=== PATIENT | male | born 1945 | race Caucasian/White ===

== ENCOUNTER → 2017-11-17 02:38 | Outpatient (CLI) | payer MEDICARE, OTHER, SELFPAY ==
[2017-11-17 11:31] LABS: INR 2.7 (1.0-3.5); Prothrombin Time 25.2 sec (9.3-10.8)
== END ==
PROVIDERS: PCP Emergency Medicine; Visit Provider Emergency Medicine
DX: I48.91 Unspecified atrial fibrillation (principal); Z79.01 Long term (current) use of anticoagulants
CPT/HCPCS: 36415; 85610

== ENCOUNTER 2017-12-12 09:11 | Emergency (ER) | payer MEDICARE, OTHER, SELFPAY ==
[2017-12-12] VITALS (11 sets, daily range): BP systolic 135; BP diastolic 70; PULSE 52–63; RESP 11–26; TEMP 37.1; O2SAT 95–98
[2017-12-12] MEDS: Tranexamic Acid 650 MG TAB PO ×2 (09:45→11:52)
--- NOTE | 2017-12-12 09:50 | W.ED.GENAD ---
Discharge Plan Discharge Details Chief Complaint: DentalOral Reason For Visit: DENTAL Primary Care Provider: Dakota Obando ED Provider: Tung Coto Home Meds and New Rx's Prescriptions: No Action cyanocobalamin (vitamin B-12) [Vitamin B-12] 1,000 MCG tablet extended release 1,000 mcg PO DAILY RF: 0 cholecalciferol (vitamin D3) [Vitamin D3] 400 UNIT capsule 400 unit PO DAILY RF: 0 amlodipine 5 MG tablet 2.5 mg PO DAILY Qty: 45 RF: 6 sildenafil [Viagra] 100 MG tablet 100 mg PO PRN Qty: 5 RF: 6 warfarin [Coumadin] 2.5 MG tablet 2.5 mg PO QPM Qty: 90 RF: 12 atorvastatin [Lipitor] 40 MG tablet 80 mg PO QPM Qty: 180 RF: 3 metoprolol succinate 100 MG tablet extended release 24 hr 200 mg PO BID Qty: 180 RF: 3 Discharge Data Discharge Date/Time-TO BE ENTERED AT DEPARTURE: 12/12/17 12:57 Medical Decision Making [facility] Narrative Medical decision making narrative: 9:55 --72-year-old male on Coumadin presents with heavy bleeding from dental extraction site since yesterday. Hemodynamically stable. The bag and heavy clot removed from bleeding site and small slow bleeding persist. TXA slurry made and applied to the bleeding site with gauze. Consider supratherapeutic INR and anemia will check INR and cbc. 11:00 --patient continues to have slow oozing despite TXA. Will reapply dressing. Plan to treat with K Centra 50 U/kg as well as vitamin K 5 mg p.o. No ENT or OMFS available here. I called to transfer this patient to the most appropriate potential receiving facility and unfortunately [facility] [place] is not able to accept given lack of bed availability. I called [facility] to request emergent transfer. 11:25 --I spoke with Dr. King, oral surgeon at [facility], who recommended patient be transferred to the emergency department and assessed by dental resident. He did not recommend additional treatment at this time other than continued TXA with pressure. I spoke with Dr. Carvalho, emergency medicine physician [facility], who will accept the patient in transfer. Will send with immunohematologist. 12:00 -- Pt reassessed: clot removed and clean gauze reapplied. Remains hemodynamically stable. Awaiting ambulance availability. HPI - General Adult General Date/Time Provider Initiated Documentation: 12/12/17 09:26. Limitations to Documentation: no limitations. Information obtained by: patient. HPI Narrative: 72-year-old male with history of atrial fibrillation on Coumadin here with chief complaint of post dental extraction bleeding. Patient notes he had his tooth pulled 2 days ago. He started to have some bleeding yesterday. Bleeding is persisted. This morning he woke up with a pool of blood on his pillow. He applied a tea bag to the area and has been biting down on this which has improved the bleeding. Bleeding was severe. Now improved. No associated dizziness or weakness. Patient notes that his Coumadin level is typically within normal range. He last took Coumadin 2 days ago and did not take a dose last night. Related Data Home Medications Medication Instructions Recorded Confirmed cholecalciferol (vitamin D3) 400 unit PO DAILY 06/23/12 12/12/17 [Vitamin D] cyanocobalamin (vitamin B-12) 1,000 mcg PO DAILY 06/23/12 12/12/17 [Vitamin B-12] Previous Rx's Medication Instructions Recorded amlodipine 2.5 mg PO DAILY #45 tab-cap 03/18/17 sildenafil [Viagra] 100 mg PO PRN #5 tab 03/18/17 warfarin [Coumadin] 2.5 mg PO QPM #90 tab 04/17/17 atorvastatin [Lipitor] 80 mg PO QPM #180 tab 09/23/17 metoprolol succinate 200 mg PO BID #180 tabcr 10/02/17 Allergies Allergy/AdvReac Type Severity Reaction Status Date / Time No Known Drug Allergies Allergy Unverified 12/12/17 09:20 General Stated Complaint: DentalOral GREG: 4 Review of Systems Review of Systems All systems reviewed & are unremarkable except as noted in HPI and below ENT Reports as per HPI Cardiovascular Denies lightheadedness PFSH Family History Mother Heart disease Father Personal history of malignant neoplasm Sister No problems noted. Brother Personal history of malignant neoplasm Medical History A-fib Central sleep apnea associated with atrial fibrillation HTN (hypertension) History of CVA (cerebrovascular accident) Social History Smoking/Tobacco Use Status: Former Tobacco Use Surgical History Repair of inguinal hernia Tonsillectomy and adenoidectomy Exam Const General: healthy appearing and no acute distress Limitations: mental status not altered HENMT Teeth image: 1. Post extraction site with significant post cauterization changes of mucosa with small area of oozing bleeding Throat: posterior oropharynx normal Eyes Conjunctivae: conjunctivae normal and conjunctival abnormality EOM: EOM intact bilaterally Neck Neck: no lymphadenopathy Resp Effort & Inspection: normal respiratory effort and no respiratory distress Auscultation: clear to auscultation bilaterally Cardio Rate: regular rate Rhythm: regular rhythm Skin General skin exam: dry skin and no pallor Neuro General: alert and awake Course Vital Signs Temperature 37.1 C 12/12/17 09:16 Pulse 52 L 12/12/17 09:16 Respiratory Rate 12 12/12/17 09:16 Blood Pressure 135/70 12/12/17 09:16 Pulse Oximetry 98 12/12/17 09:16 Temperature 37.1 C 12/12/17 09:16 Pulse 52 L 12/12/17 09:16 Respiratory Rate 12 12/12/17 09:16 Blood Pressure 135/70 12/12/17 09:16 Pulse Oximetry 98 12/12/17 09:16 Critical Care Time Total Critical Care Time: 40 Attestation: I spent >40 min addressing this patients immediate life threats
--- NOTE | 2017-12-12 09:57 | ED.GENADUL_ITS ---
Discharge Plan Discharge Details Chief Complaint: DentalOral Reason For Visit: DENTAL Primary Care Provider: Dakota Obando ED Provider: Tung Coto Home Meds and New Rx's Prescriptions: No Action cyanocobalamin (vitamin B-12) [Vitamin B-12] 1,000 MCG tablet extended release 1,000 mcg PO DAILY RF: 0 cholecalciferol (vitamin D3) [Vitamin D3] 400 UNIT capsule 400 unit PO DAILY RF: 0 amlodipine 5 MG tablet 2.5 mg PO DAILY Qty: 45 RF: 6 sildenafil [Viagra] 100 MG tablet 100 mg PO PRN Qty: 5 RF: 6 warfarin [Coumadin] 2.5 MG tablet 2.5 mg PO QPM Qty: 90 RF: 12 atorvastatin [Lipitor] 40 MG tablet 80 mg PO QPM Qty: 180 RF: 3 metoprolol succinate 100 MG tablet extended release 24 hr 200 mg PO BID Qty: 180 RF: 3 Discharge Data Discharge Date/Time-TO BE ENTERED AT DEPARTURE: 12/12/17 12:57 Medical Decision Making [facility] Narrative Medical decision making narrative: 9:55 --72-year-old male on Coumadin presents with heavy bleeding from dental extraction site since yesterday. Hemodynamically stable. The bag and heavy clot removed from bleeding site and small slow bleeding persist. TXA slurry made and applied to the bleeding site with gauze. Consider supratherapeutic INR and anemia will check INR and cbc. 11:00 --patient continues to have slow oozing despite TXA. Will reapply dressing. Plan to treat with K Centra 50 U/kg as well as vitamin K 5 mg p.o. No ENT or OMFS available here. I called to transfer this patient to the most appropriate potential receiving facility and unfortunately [facility] is not able to accept given lack of bed availability. I called [facility] to request emergent transfer. 11:25 --I spoke with Dr. King, oral surgeon at [facility], who recommended patient be transferred to the emergency department and assessed by dental resident. He did not recommend additional treatment at this time other than continued TXA with pressure. I spoke with Dr. Carvalho, emergency medicine physician [facility], who will accept the patient in transfer. Will send with safety and health manager. 12:00 -- Pt reassessed: clot removed and clean gauze reapplied. Remains hemodynamically stable. Awaiting ambulance availability. HPI - General Adult General Date/Time Provider Initiated Documentation: 12/12/17 09:26 . Limitations to Documentation: no limitations . Information obtained by: patient . HPI Narrative: 72-year-old male with history of atrial fibrillation on Coumadin here with chief complaint of post dental extraction bleeding. Patient notes he had his tooth pulled 2 days ago. He started to have some bleeding yesterday. Bleeding is persisted. This morning he woke up with a pool of blood on his pillow. He applied a tea bag to the area and has been biting down on this which has improved the bleeding. Bleeding was severe. Now improved. No associated dizziness or weakness. Patient notes that his Coumadin level is typically within normal range. He last took Coumadin 2 days ago and did not take a dose last night. Related Data Home Medications Medication Instructions Recorded Confirmed cholecalciferol (vitamin D3) 400 unit PO DAILY 06/23/12 12/12/17 [Vitamin D] cyanocobalamin (vitamin B-12) 1,000 mcg PO DAILY 06/23/12 12/12/17 [Vitamin B-12] Previous Rx's Medication Instructions Recorded amlodipine 2.5 mg PO DAILY #45 tab-cap 03/18/17 sildenafil [Viagra] 100 mg PO PRN #5 tab 03/18/17 warfarin [Coumadin] 2.5 mg PO QPM #90 tab 04/17/17 atorvastatin [Lipitor] 80 mg PO QPM #180 tab 09/23/17 metoprolol succinate 200 mg PO BID #180 tabcr 10/02/17 Allergies Allergy/AdvReac Type Severity Reaction Status Date / Time No Known Drug Allergies Allergy Unverified 12/12/17 09:20 General Stated Complaint: DentalOral GREG: 4 Review of Systems Review of Systems All systems reviewed & are unremarkable except as noted in HPI and below ENT Reports as per HPI Cardiovascular Denies lightheadedness PFSH Family History Mother Heart disease Father Personal history of malignant neoplasm Sister No problems noted. Brother Personal history of malignant neoplasm Medical History A-fib Central sleep apnea associated with atrial fibrillation HTN (hypertension) History of CVA (cerebrovascular accident) Social History Smoking/Tobacco Use Status: Former Tobacco Use Surgical History Repair of inguinal hernia Tonsillectomy and adenoidectomy Exam Const General: healthy appearing and no acute distress Limitations: mental status not altered [facility] Teeth image: 2 1. Post extraction site with significant post cauterization changes of mucosa with small area of oozing bleeding Throat: posterior oropharynx normal Eyes Conjunctivae: conjunctivae normal and conjunctival abnormality EOM: EOM intact bilaterally Neck Neck: no lymphadenopathy Resp Effort & Inspection: normal respiratory effort and no respiratory distress Auscultation: clear to auscultation bilaterally Cardio Rate: regular rate Rhythm: regular rhythm Skin General skin exam: dry skin and no pallor Neuro General: alert and awake Course Vital Signs Temperature 37.1 C 12/12/17 09:16 Pulse 52 L 12/12/17 09:16 Respiratory Rate 12 12/12/17 09:16 Blood Pressure 135/70 12/12/17 09:16 Pulse Oximetry 98 12/12/17 09:16 Temperature 37.1 C 12/12/17 09:16 Pulse 52 L 12/12/17 09:16 Respiratory Rate 12 12/12/17 09:16 Blood Pressure 135/70 12/12/17 09:16 Pulse Oximetry 98 12/12/17 09:16 Critical Care Time Total Critical Care Time: 40 Attestation: I spent >40 min addressing this patients immediate life threats
[2017-12-12 10:36] LABS: HGB 14.9 g/dL (13.5-17.5); Mean Corp. HGB Concentration 33.9 g/dL (32.0-36.0); Mean Corpuscular Hemoglobin 31.2 pg (27.0-33.0); Mean Corpuscular Volume 92.2 fL (80-95); Mean Platelet Volume 9.6 fL (8.0-11.0); Platelet Count 224 x1000/uL (130-400); RBC 4.77 m/cumm (4.50-6.00); White Blood Cell Count 10.87 k/cumm (4.4-10.8)
[2017-12-12 10:45] LABS: Prothrombin Time 56.3 sec (9.3-10.8)
[2017-12-12 10:49] LABS: INR 6.2 (1.0-3.5)
[2017-12-12] MEDS: Phytonadione 5 MG TABLET PO (11:55)
== END 2017-12-12 12:57 ==
LOC: ER 13:37
PROVIDERS: Emergency Provider Student in an Organized Health Care Education/Training Program; PCP Emergency Medicine
DX: K91.840 Postprocedural hemorrhage of a digestive system organ or structure following a digestive system procedure (principal); Y84.8 Other medical procedures as the cause of abnormal reaction of the patient, or of later complication, without mention of misadventure at the time of the procedure; R79.1 Abnormal coagulation profile; T45.515A Adverse effect of anticoagulants, initial encounter; Z79.01 Long term (current) use of anticoagulants; I48.91 Unspecified atrial fibrillation; I10 Essential (primary) hypertension
CPT/HCPCS: 36415; 85027; 96365; 99285; 85610; 99284

== ENCOUNTER 2017-12-14 12:00 | Outpatient (CLI) | payer MEDICARE, OTHER, SELFPAY ==
[2017-12-14 13:36] LABS: INR 1.4 (1.0-3.5); Prothrombin Time 13.1 sec (9.3-10.8)
== END 2017-12-14 12:20 ==
PROVIDERS: PCP Emergency Medicine; Visit Provider Emergency Medicine
DX: I48.91 Unspecified atrial fibrillation (principal); Z79.01 Long term (current) use of anticoagulants
CPT/HCPCS: 36415; 85610

== ENCOUNTER 2017-12-18 01:09 | Outpatient (CLI) | payer MEDICARE, OTHER, SELFPAY ==
[2017-12-18 11:55] LABS: INR 1.9 (1.0-3.5)
== END 2017-12-18 01:29 ==
LOC: LOS 01:10 → LBO 11:01
PROVIDERS: PCP Emergency Medicine; Visit Provider Emergency Medicine
DX: I48.91 Unspecified atrial fibrillation (principal); Z79.01 Long term (current) use of anticoagulants
CPT/HCPCS: 36415; 85610

== ENCOUNTER 2018-01-14 02:18 | Outpatient (CLI) | payer MEDICARE, OTHER, SELFPAY ==
[2018-01-14 13:23] LABS: INR 2.5 (1.0-3.5); Prothrombin Time 23.3 sec (9.3-10.8)
== END 2018-01-14 02:38 ==
PROVIDERS: PCP Emergency Medicine; Visit Provider Emergency Medicine
DX: I48.91 Unspecified atrial fibrillation (principal); Z79.01 Long term (current) use of anticoagulants
CPT/HCPCS: 36415; 85610

== ENCOUNTER 2018-07-27 01:44 | Outpatient (CLI) | payer MEDICARE, OTHER, SELFPAY ==
[2018-07-27 13:06] LABS: INR 1.9 (0.9-1.1); Prothrombin Time 18.8 sec (9.3-11.0)
== END 2018-07-27 02:04 ==
PROVIDERS: PCP Emergency Medicine; Visit Provider Emergency Medicine
DX: I48.91 Unspecified atrial fibrillation (principal); Z79.01 Long term (current) use of anticoagulants
CPT/HCPCS: 36415; 85610

== ENCOUNTER 2018-08-04 08:30 | Outpatient (CLI) | payer MEDICARE, OTHER, SELFPAY ==
[2018-08-04 11:03] LABS: INR 1.6 (0.9-1.1); Prothrombin Time 15.9 sec (9.3-11.0)
[2018-08-04 11:35] LABS: ALT 22 U/L (12-78); AST 21 U/L (15-37); Albumin 3.7 g/dL (3.4-5.0); Alkaline Phosphatase 70 U/L (46-116); Anion Gap 7.3 mmol/L (3-11); BUN 14 mg/dL (7-18); Bilirubin, Total 0.8 mg/dL (0.2-1.0); CO2 29.7 mmol/L (21.0-32.0); CREATININE 1.13 mg/dL (0.70-1.30); Calcium 9.6 mg/dL (8.5-10.1); Chloride 104 mmol/L (98-107); Cholesterol 131 mg/dL (50-200); Glucose 107 mg/dL (70-100); HDL Cholesterol 50 mg/dL (40-60); LDL CHOLESTEROL 67 mg/dL (<100); Potassium 4.6 mmol/L (3.5-5.1); Sodium 141 mmol/L (136-145); TSH 1.11 uIU/mL (0.358-3.74); Total Protein 7.1 g/dL (6.4-8.2); Triglyceride 60 mg/dL (30-150)
[2018-08-04 11:41] LABS: ESR 8 MM/HR (1-20)
== END 2018-08-04 08:50 ==
PROVIDERS: PCP Emergency Medicine; Visit Provider Emergency Medicine
DX: I63.9 Cerebral infarction, unspecified; R63.4 Abnormal weight loss; E03.9 Hypothyroidism, unspecified; I48.91 Unspecified atrial fibrillation; Z79.01 Long term (current) use of anticoagulants
CPT/HCPCS: 36415; 80053; 80061; 83721; 85652; 84443; 85610

== ENCOUNTER 2018-08-16 09:36 | Outpatient (CLI) | payer MEDICARE, OTHER, SELFPAY ==
[2018-08-16 11:21] LABS: Prothrombin Time 20.6 sec (9.3-11.0)
== END 2018-08-16 09:56 ==
PROVIDERS: PCP Emergency Medicine; Visit Provider Emergency Medicine
DX: I48.91 Unspecified atrial fibrillation (principal); Z79.01 Long term (current) use of anticoagulants
CPT/HCPCS: 36415; 85610

== ENCOUNTER 2018-09-02 12:34 | Outpatient (CLI) | payer MEDICARE, OTHER, SELFPAY ==
[2018-09-02 14:16] LABS: INR 2.5 (0.9-1.1); Prothrombin Time 25.4 sec (9.3-11.0)
== END 2018-09-02 12:54 ==
PROVIDERS: PCP Emergency Medicine; Visit Provider Emergency Medicine
DX: I48.91 Unspecified atrial fibrillation (principal); Z79.01 Long term (current) use of anticoagulants
CPT/HCPCS: 36415; 85610

== ENCOUNTER 2018-09-08 01:52 | Outpatient (CLI) | payer MEDICARE, OTHER, SELFPAY ==
[2018-09-08 11:03] LABS: INR 2.2 (0.9-1.1); Prothrombin Time 21.8 sec (9.3-11.0)
== END 2018-09-08 02:12 ==
PROVIDERS: PCP Emergency Medicine; Visit Provider Emergency Medicine
DX: I48.91 Unspecified atrial fibrillation (principal); Z79.01 Long term (current) use of anticoagulants
CPT/HCPCS: 36415; 85610

== ENCOUNTER 2018-10-12 02:40 | Outpatient (CLI) | payer MEDICARE, OTHER, SELFPAY ==
[2018-10-12 10:55] LABS: INR 3.5 (0.9-1.1); Prothrombin Time 35.3 sec (9.3-11.0)
== END 2018-10-12 03:00 ==
PROVIDERS: PCP Emergency Medicine; Visit Provider Emergency Medicine
DX: I48.91 Unspecified atrial fibrillation (principal); Z79.01 Long term (current) use of anticoagulants
CPT/HCPCS: 36415; 85610

== ENCOUNTER 2018-10-27 09:40 | Outpatient (CLI) | payer MEDICARE, OTHER, SELFPAY ==
[2018-10-27 10:48] LABS: HCT 43.6 % (40.0-50.0); HGB 14.4 g/dL (13.5-17.5); Mean Corpuscular Hemoglobin 30.6 pg (27.0-33.0); Mean Corpuscular Volume 92.8 fL (80-95); Platelet Count 229 x1000/uL (130-400); RBC Distribution Width 12.8 % (11.8-14.1); White Blood Cell Count 6.99 k/cumm (4.4-10.8)
[2018-10-27 10:56] LABS: INR 1.6 (0.9-1.1); Prothrombin Time 16.4 sec (9.3-11.0)
[2018-10-27 11:41] LABS: ALT 27 U/L (12-78); AST 19 U/L (15-37); Albumin 3.5 g/dL (3.4-5.0); Alkaline Phosphatase 69 U/L (46-116); Anion Gap 8.4 mmol/L (3-11); BUN 21 mg/dL (7-18); Bilirubin, Total 0.7 mg/dL (0.2-1.0); CO2 28.6 mmol/L (21.0-32.0); CREATININE 1.03 mg/dL (0.70-1.30); Calcium 8.7 mg/dL (8.5-10.1); Chloride 104 mmol/L (98-107); Glucose 96 mg/dL (70-100); Potassium 4.6 mmol/L (3.5-5.1); Sodium 141 mmol/L (136-145); Total Protein 6.7 g/dL (6.4-8.2)
== END 2018-10-27 10:00 ==
PROVIDERS: PCP Emergency Medicine; Visit Provider Emergency Medicine
DX: R63.4 Abnormal weight loss (principal); I48.91 Unspecified atrial fibrillation; Z79.01 Long term (current) use of anticoagulants
CPT/HCPCS: 36415; 80053; 85027; 85610

== ENCOUNTER 2018-11-24 02:39 | Outpatient (CLI) | payer MEDICARE, OTHER, SELFPAY ==
[2018-11-24 13:06] LABS: INR 2.8 (0.9-1.1); Prothrombin Time 28.6 sec (9.3-11.0)
== END 2018-11-24 02:59 ==
PROVIDERS: PCP Emergency Medicine; Visit Provider Emergency Medicine
DX: I48.91 Unspecified atrial fibrillation (principal); Z79.01 Long term (current) use of anticoagulants
CPT/HCPCS: 36415; 85610

== ENCOUNTER 2018-12-08 01:18 | Outpatient (CLI) | payer MEDICARE, OTHER, SELFPAY ==
[2018-12-08 13:00] LABS: Prothrombin Time 20.5 sec (9.3-11.0)
== END 2018-12-08 01:38 ==
PROVIDERS: PCP Emergency Medicine; Visit Provider Emergency Medicine
DX: I48.91 Unspecified atrial fibrillation (principal); Z79.01 Long term (current) use of anticoagulants
CPT/HCPCS: 36415; 85610

== ENCOUNTER 2018-12-14 07:00 | Outpatient (CLI) | payer MEDICARE, OTHER, SELFPAY ==
[2018-12-14 13:05] LABS: Abs Immature Grans 0.01 k/cumm (0.0-0.09); Absolute Basophil Count 0.02 k/cumm (0.0-0.2); Absolute Eosinophil Count 0.12 k/cumm (0.0-0.7); Absolute Lymphocyte Count 1.62 k/cumm (1.2-3.4); Absolute Neutrophil Count 5.41 k/cumm (1.2-6.7); Basophils % 0.3; Eosinophils % 1.5; HCT 44.2 % (40.0-50.0); HGB 14.6 g/dL (13.5-17.5); Immature Grans % 0.1; Lymphocytes % 20.3; Mean Corpuscular Hemoglobin 30.7 pg (27.0-33.0); Mean Corpuscular Volume 92.9 fL (80-95); Mean Platelet Volume 10.2 fL (8.0-11.0); Neutrophils % 67.8; Platelet Count 285 x1000/uL (130-400); RBC 4.76 m/cumm (4.50-6.00); RBC Distribution Width 13.3 % (11.8-14.1); White Blood Cell Count 7.98 k/cumm (4.4-10.8)
[2018-12-14 13:20] LABS: ALT 27 U/L (16-63); AST 23 U/L (15-37); Albumin 3.6 g/dL (3.4-5.0); Alkaline Phosphatase 69 U/L (46-116); Anion Gap 6.6 mmol/L (3-11); BUN 12 mg/dL (7-18); Bilirubin, Total 0.8 mg/dL (0.2-1.0); CO2 30.4 mmol/L (21.0-32.0); CREATININE 1.16 mg/dL (0.70-1.30); Calcium 8.7 mg/dL (8.5-10.1); Chloride 105 mmol/L (98-107); Glucose 115 mg/dL (70-100); Potassium 4.3 mmol/L (3.5-5.1); Sodium 142 mmol/L (136-145); Total Protein 6.9 g/dL (6.4-8.2)
[2018-12-14 13:25] LABS: C-Reactive Protein < 0.05 mg/dL (0.0-0.3)
[2018-12-14 14:58] LABS: ESR 10 mm/hr (1-20)
== END 2018-12-14 07:20 ==
PROVIDERS: PCP Emergency Medicine; Visit Provider Emergency Medicine
DX: R63.4 Abnormal weight loss (principal)
CPT/HCPCS: 36415; 80053; 85652; 81003; 85025; 86140

== ENCOUNTER 2018-12-20 00:36 | Outpatient (CLI) | payer MEDICARE, OTHER, SELFPAY ==
--- NOTE | 2018-12-20 09:49 | DI.RAD_ITS ---
EXAM: XR CHEST 2V PA LATERAL INDICATION: unexplained weight loss R63.4. COMPARISON: PORTABLE AP CHEST from 05/23/2011 TECHNIQUE: 2D digital imaging was performed. FINDINGS: The lungs are well expanded and free of infiltrate. There is no pleural effusion. The cardiovascular structures are intact. IMPRESSION: Normal chest.
== END 2018-12-20 00:56 ==
PROVIDERS: PCP Emergency Medicine; Visit Provider Emergency Medicine
DX: R63.4 Abnormal weight loss (principal)
CPT/HCPCS: 71046

== ENCOUNTER 2019-01-03 02:44 | Outpatient (CLI) | payer MEDICARE, OTHER, SELFPAY ==
[2019-01-03 11:52] LABS: INR 2.5 (0.9-1.1); Prothrombin Time 24.6 sec (9.3-11.0)
== END 2019-01-03 03:04 ==
PROVIDERS: PCP Emergency Medicine; Visit Provider Emergency Medicine
DX: I48.91 Unspecified atrial fibrillation (principal); Z79.01 Long term (current) use of anticoagulants
CPT/HCPCS: 36415; 85610

== ENCOUNTER 2019-01-14 11:10 | Outpatient (REF) | payer MEDICARE, OTHER, SELFPAY ==
--- NOTE | 2019-01-14 10:00 | SKI_PTH ---
PATIENT: JERRICA MUELLER LOC: [facility] U#:[id number] AGE/SX: 73/M ROOM: RE01/14/[address]: Dakota Obando DO : 1945 BED: DIS: 01/14/2019 SPEC #: [id number] RECD: 01/14/19 12:57 STATUS: INES REQ #: [id number] ALBA: 01/14/19 10:[address]: Dakota Obando DEPT: Surgical Specimen RECD BY: Sally River Tissues: 1 - SKIN BIOPSY(SHAVE/PUNCH) Procedures: SKIN LEVEL 4 Comments: [id number]
== END 2019-01-14 11:30 ==
LOC: LBN 11:10
PROVIDERS: PCP Emergency Medicine; Visit Provider Emergency Medicine
DX: L57.0 Actinic keratosis (principal)
CPT/HCPCS: 88305

== ENCOUNTER 2019-01-20 09:19 | Outpatient (CLI) | payer MEDICARE, OTHER, SELFPAY ==
--- NOTE | 2019-01-20 09:22 | DI.CT_ITS ---
EXAM: CT ABDOMEN PELVIS W CLINICAL HISTORY: 15 lb weight loss, abnl wt loss TECHNIQUE: CT examination of the abdomen and pelvis was performed with bolus infusion of 100 cc of O mnipaque 350 and ingestion of dilute barium. COMPARISON: No exams were available for comparison FINDINGS: Images obtained through the lung bases show nonspecific predominantly linear radiodensities in right lung base which may represent areas of scarring. Small areas of atelectasis or consolidation not ent irely excluded. No pleural effusion seen. Liver is unremarkable in appearance except for the presence of a couple of tiny low-attenuation lesio ns too small to characterize but presumably representing cysts. Gallbladder contains at least 1 gall stone. No gallbladder wall thickening by CT criteria. No biliary dilatation. Pancreas appears norm al. Spleen is normal in appearance. Abdominal aorta is of normal diameter and no major vascular abnormality is seen. Adrenals and kidneys are unremarkable in appearance except for a presumed small left renal cyst. Sma ll fat containing left inguinal hernia. Old right inguinal hernia plug noted. No urinary tract calcification. No hydronephrosis. Note is made of dilated urinary bladder and ther e is a left bladder diverticulum consistent with chronic bladder outlet obstruction. There is a very large lobulated mass most likely originating from the prostate, possibility of a bladder wall mass i s not excluded or could coexist with prostatic mass. Correlation with cystoscopy recommended. No focal bowel pathology identified. No evidence of diverticulitis or bowel obstruction. No gross a bdominal or pelvic adenopathy. IMPRESSION: 1. Cholelithiasis. 2. Question minimal right lower lobe atelectasis versus scarring, consolidation not entirely excluded . 3. Bladder diverticulum suggesting chronic bladder outlet obstruction. 4. Large prostatic or bladder mass, cystoscopy recommended for further evaluation.
[2019-01-20] MEDS: Omnipaque 350 MG/ML 100 ML BTL IJ (11:05)
== END 2019-01-20 09:39 ==
PROVIDERS: PCP Emergency Medicine; Visit Provider Emergency Medicine
DX: R63.4 Abnormal weight loss (principal); K80.20 Calculus of gallbladder without cholecystitis without obstruction; J98.4 Other disorders of lung; N32.0 Bladder-neck obstruction; N32.89 Other specified disorders of bladder; N42.89 Other specified disorders of prostate
CPT/HCPCS: 74177; J3490

== ENCOUNTER 2019-01-21 14:45 | Outpatient (CLI) | payer MEDICARE, OTHER, SELFPAY ==
[2019-01-21 15:05] LABS: Bilirubin Negative (Negative); Blood Negative (Negative); Clarity Clear (Clear); Glucose Negative (Negative); Ketones Negative (Negative); Leukocyte Esterase Negative (Negative); Nitrite Negative (Negative); Specific Gravity 1.015 (1.005-1.025); pH 6.5 (5-8)
[2019-01-21 15:27] LABS: Bacteria Moderate HPF (Negative); C & S Indicated? No; Casts 5-10 Hyaline LPF (Negative); Crystals Negative HPF (Negative); Epithelial Cells Negative HPF (Negative); Mucus Heavy (Negative); Other Cells Rare Renal (Negative); RBC 0-2 (0-2); WBC 0-2 HPF (0-5)
[2019-01-21 15:59] LABS: INR 2.5 (0.9-1.1); Prothrombin Time 24.5 sec (9.3-11.0)
[2019-01-24 10:31] LABS: PSA, Diagnostic 1.8 ng/ml (0-6.5)
== END 2019-01-21 15:05 ==
PROVIDERS: PCP Emergency Medicine; Visit Provider Emergency Medicine
DX: R30.0 Dysuria (principal); C61 Malignant neoplasm of prostate; I48.91 Unspecified atrial fibrillation; Z79.01 Long term (current) use of anticoagulants
CPT/HCPCS: 36415; 81003; 81015; 84153; 85610

== ENCOUNTER → 2019-01-27 14:40 | Outpatient (BNVA) | payer MEDICARE, OTHER, SELFPAY | PROVIDERS: PCP Emergency Medicine; Referring Provider Emergency Medicine; Visit Provider Urology | DX: N40.0 Benign prostatic hyperplasia without lower urinary tract symptoms (principal); N32.3 Diverticulum of bladder; Z80.42 Family history of malignant neoplasm of prostate | CPT/HCPCS: 51798; 99203; 99214 ==

== ENCOUNTER 2019-01-27 16:44 | Outpatient (REF) | payer MEDICARE, OTHER, SELFPAY ==
--- NOTE | 2019-01-27 16:00 | PAPNONF_PTH ---
PATIENT: JERRICA MUELLER LOC: [facility] U#:[id number] AGE/SX: 73/M ROOM: RE01/27/[address]: Jeffy Camilo MD : 1945 BED: DIS: 01/27/2019 SPEC #: [id number] RECD: 01/27/19 17:03 STATUS: INES RESergio #: [id number] ALBA: 01/27/19 16:[address]: Jeffy Camilo DEPT: [facility] Cytology RECD BY: Sally River ENTERED: 01/27/19 17:04 SP TYPE: PUSHPA SANCHEZ DR: Dakota Obando, Tissues: 1 - BODY FLUID CYTO(SPUTUM/URINE)[facility] Procedures: BODY FLUID CYTO(URINE/SPUTUM) Comments: [id number] (TOTAL VOLUME = 60 ml's) (30 ml's URINE & 30 ml's CYTOLYT ADDED IN 2 CONTAINERS)
== END 2019-01-27 17:04 ==
LOC: LBN 16:44
PROVIDERS: PCP Emergency Medicine; Visit Provider Urology
DX: R31.21 Asymptomatic microscopic hematuria (principal)
CPT/HCPCS: 88104

== ENCOUNTER 2019-02-09 01:09 | Outpatient (CLI) | payer MEDICARE, OTHER, SELFPAY ==
[2019-02-09 13:05] LABS: INR 2.1 (0.9-1.1); Prothrombin Time 20.3 sec (9.3-11.0)
== END 2019-02-09 01:29 ==
PROVIDERS: PCP Emergency Medicine; Visit Provider Emergency Medicine
DX: I48.91 Unspecified atrial fibrillation (principal); Z79.01 Long term (current) use of anticoagulants
CPT/HCPCS: 36415; 85610

== ENCOUNTER 2019-10-31 02:12 | Outpatient (CLI) | payer MEDICARE, OTHER, SELFPAY ==
[2019-10-31 12:03] LABS: INR 1.9 (0.9-1.1); Prothrombin Time 18.7 sec (9.3-11.0)
== END 2019-10-31 02:32 ==
PROVIDERS: PCP Emergency Medicine; Visit Provider Emergency Medicine
DX: I48.91 Unspecified atrial fibrillation (principal); Z79.01 Long term (current) use of anticoagulants
CPT/HCPCS: 36415; 85610

== ENCOUNTER 2019-11-04 03:04 | Outpatient (CLI) | payer MEDICARE, OTHER, SELFPAY ==
[2019-11-04 12:43] LABS: HCT 39.1 % (40.0-50.0); HGB 13.2 g/dL (13.5-17.5); MCH 31.4 pg (27.0-33.0); MCHC 33.8 % (32.0-36.0); MCV 93.1 fL (80-95); MPV 9.6 fL (8.0-11.0); Platelet Count 258 10^3/uL (130-400); RDW 12.6 % (11.8-14.1); RDW-SD 42.6 fL; WBC 6.46 10^3/uL (4.4-10.8)
[2019-11-04 13:43] LABS: ESR 19 mm/hr (1-20)
[2019-11-04 13:57] LABS: ALT 27 U/L (16-63); AST 19 U/L (15-37); Albumin 3.3 g/dL (3.4-5.0); Alkaline Phosphatase 74 U/L (46-116); Anion Gap 7.1 mmol/L (3-11); BUN 24 mg/dL (7-18); Bilirubin, Total 0.6 mg/dL (0.2-1.0); CO2 30.9 mmol/L (21.0-32.0); CREATININE 1.08 mg/dL (0.70-1.30); Calcium 8.8 mg/dL (8.5-10.1); Chloride 104 mmol/L (98-107); Glucose 97 mg/dL (74-106); Potassium 4.3 mmol/L (3.5-5.1); Sodium 142 mmol/L (136-145); TSH 0.71 uIU/mL (0.36-3.74); Total Protein 6.6 g/dL (6.4-8.2); Vitamin B12 1500 pg/mL (193-986)
[2019-11-07 09:25] LABS: PSA, Diagnostic 2.1 ng/mL (0.0-6.5)
== END 2019-11-04 03:24 ==
PROVIDERS: Urology; PCP Emergency Medicine; Visit Provider Emergency Medicine
DX: N40.0 Benign prostatic hyperplasia without lower urinary tract symptoms (principal); R63.4 Abnormal weight loss; N32.3 Diverticulum of bladder; I10 Essential (primary) hypertension
CPT/HCPCS: 36415; 80053; 85027; 85652; 99213; 82607; 84153; 84443; 86140

== ENCOUNTER 2019-11-08 01:35 | Outpatient (CLI) | payer MEDICARE, OTHER, SELFPAY ==
--- NOTE | 2019-11-08 08:00 | DI.CT_ITS ---
EXAM: CT HEAD WO CLINICAL HISTORY: confusion,rt facial weakness,r29.810,r41.0. TECHNIQUE: Imaging Protocol: Axial computed tomography images with coronal and sagittal reformatted images were created and reviewed COMPARISON: CT HEAD WITHOUT STROKE PROTOCOL from 08/25/2014 MR MRI - BRAIN WO CONTRAST from 08/28/2014 FINDINGS: Ventricles and Extra axial spaces: Normal in size and morphology for the patient's age. Hemorrhage: None. Cerebral parenchyma: There are areas of decreased attenuation in the white matter most consistent wit h microvascular ischemic disease. No evidence of acute territorial infarct. 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 Midline shift: None. Brainstem/Cerebellum: Normal. Calvarium: Normal. Visualized Paranasal sinuses/Mastoids: Clear. Soft Tissues: Unremarkable. IMPRESSION: No acute intracranial process. RADIATION DOSE DELIVERED: 822.56mGy.cm Total DLP DATA REPOSITORY: All CT scans at this facility are submitted to the National Radiology Data Registry (NRDR) Dose Index Registry (DIR) with the [employer] ([employer]). RADIATION OPTIMIZATION: All CT scans at this facility use at least one of these dose optimization te chniques: automated exposure control; mA and/or kV adjustment per patient size (includes targeted exa ms where dose is matched to clinical indication); or iterative reconstruction.
== END 2019-11-08 01:55 ==
PROVIDERS: PCP Emergency Medicine; Visit Provider Emergency Medicine
DX: R41.0 Disorientation, unspecified (principal); R29.810 Facial weakness
CPT/HCPCS: 70450